=== PATIENT | female | born 1980 | race Caucasian/White ===

== ENCOUNTER 2019-09-13 17:38 | Emergency (ER) | payer SELFPAY ==
[~2019-09-13] VITALS: Ht 170.2 cm; Wt 72.7 kg
[2019-09-13] MEDS ORDERED: LIDOcaine 1% W/epiNEPHrine 1:200,000 10ml vial IJ ONE (18:30)
[2019-09-13] MEDS ORDERED: CEPH250T PO (20:08)
[2019-09-13] MEDS ORDERED: cephalexin 250mg capsule PO ONE (20:30)
[2019-09-13 21:05] VITALS: BP 136/82
== END 2019-09-13 21:12 | disposition home or self-care (01) ==
LOC: ER 17:39
DX: S61.211A Laceration without foreign body of left index finger without damage to nail, initial encounter (principal); Z79.2 Long term (current) use of antibiotics; W26.0XXA Contact with knife, initial encounter; Y93.89 Activity, other specified; Y92.89 Other specified places as the place of occurrence of the external cause; Y99.8 Other external cause status
CPT/HCPCS: 12001; 73130; 99283

== ENCOUNTER → 2019-09-28 | Day surgery (SDC) | payer OTHER ==
[2019-09-27 15:55] LABS: BASOPHILS # (AUTO) 0.1 X10'3 (0-0.2); BASOPHILS % (AUTO) 1.2 % (0-1); EOSINOPHILS # (AUTO) 0.1 X10'3 (0-0.9); EOSINOPHILS % (AUTO) 1.3 % (0-6); LYMPHOCYTES # (AUTO) 1.7 X10'3 (1.1-4.8); LYMPHOCYTES % (AUTO) 28.5 % (21-51); MEAN CORPUSCULAR HEMOGLOBIN 32.2 PG (27.0-31.0); MEAN CORPUSCULAR HGB CONC 33.8 g/dL (33.0-36.5); MEAN CORPUSCULAR VOLUME 95.2 FL (78-98); MEAN PLATELET VOLUME 6.5 FL (7.4-10.4); MONOCYTES # (AUTO) 0.7 X10'3 (0-0.9); MONOCYTES % (AUTO) 12.6 % (2-12); NEUTROPHILS # (AUTO) 3.3 X10'3 (1.8-7.7); NEUTROPHILS % (AUTO) 56.4 % (42-75); PRE OP HEMATOCRIT 38.3 % (35.0-45.0); PRE OP PLATELET COUNT 377 X10'3 (140-440); RED BLOOD COUNT 4.03 X10'6 (4.20-5.60); RED CELL DISTRIBUTION WIDTH 12.3 % (11.5-14.5)
[2019-09-27 16:33] LABS: HCG SERUM QL NEGATIVE
[~2019-09-28] VITALS: Ht 170.2 cm; Wt 74.0 kg
[2019-09-28] VITALS (7 sets, daily range): BP systolic 100–110; BP diastolic 54–76
[~2019-09-28] MED LIST: ALPR-624 PO; BUPIVAcaine/PF 2.5mg/ml (0.25%) 10ml vial ONE; HYDROmorphone inj. 0.5 MG/0.5 ML DISP.SYRIN IV PRN; LIDOcaine 0.5% (5mg/ml) 50ml vial ONE; OMEG-82 PO; VALA100031 PO; VILA40TA PO; acetaminophen 1,000mg/100ml IV 100 ML IV PRN; ceFAZolin 1GM/D5W- ADD-VANTAGE 50 ML IV ONE; famotidine 20mg tablet PO ONE; fentaNYL/PF 50MCG/1 ML 2ML syringe ONE; ketorolac trometh. 30mg/ml inj. IV ONE; meperidine/PF 25mg/ml syringe IV PRN; midazolam 2 mg/2 ml injection ONE; morphine 2 MG/ML inj. syringe IV PRN; morphine 4 MG/ML inj SYRINge IV PRN; ondansetron/PF 4mg/2ml inj IV PRN; proCHLORperazine 10 MG/2 ml inj IV PRN; propofol inj 20 ML IV ONE; ringers solution, lacted 1,000 ML IV SCH
--- NOTE | 2019-09-28 09:34 | NUR ---
Received from OR via , accompanied by Anesthesiologist DR HEATON and report given by Anesthesiolgist. AWAKENS TO VOICE. VITALS STABLE. SPLINT DI. SAMUEL PAIN. FINGERS WARM AND PINK.
--- NOTE | 2019-09-28 10:34 | NUR ---
AWAKE AND ORIENTED. VITALS STABLE. DRESSING DI. SAMUEL PAIN. HOME WITH A FRIEND AT THIS TIME.
== END | disposition home or self-care (01) ==
LOC: PAS 05:54
PROVIDERS: ATTEND Orthopaedic Surgery Hand Surgery
DX: S66.321A Laceration of extensor muscle, fascia and tendon of left index finger at wrist and hand level, initial encounter (principal); F41.9 Anxiety disorder, unspecified; Z98.890 Other specified postprocedural states; Z87.891 Personal history of nicotine dependence; Z79.899 Other long term (current) drug therapy; Z98.51 Tubal ligation status; Z79.82 Long term (current) use of aspirin; Z72.89 Other problems related to lifestyle; W31.89XA Contact with other specified machinery, initial encounter; Y93.89 Activity, other specified; Y92.89 Other specified places as the place of occurrence of the external cause; Y99.8 Other external cause status
CPT/HCPCS: 26418; 36415; 82948; 84703; 85025; J0690; J2001; J2250; J2704; J3010; J3490; J7120; A4215; A4618; A7000